=== PATIENT | male | born 1945 | race Caucasian/White ===

== ENCOUNTER 2019-05-30 15:31 | Inpatient (IN) | payer MEDICARE ==
[~2019-05-30] VITALS: Ht 170.2 cm; Wt 107.0 kg
[2019-05-30] MEDS ORDERED: METF-954 PO (15:59)
[2019-05-30] MEDS ORDERED: ACTO30TA15 PO (15:59)
[2019-05-30] MEDS ORDERED: ZYLO300T6 PO (15:59)
[2019-05-30] MEDS ORDERED: LOSA100T50 PO (15:59)
[2019-05-30] MEDS ORDERED: SODI325T9 PO (15:59)
[2019-05-30] MEDS ORDERED: ONGL1TAB9 PO (15:59)
[2019-05-30 16:39] LABS: BASO # 0.1 10^3/uL (0.0-0.2); BASO % 0.7 % (0.0-1.0); EOS # 0.1 10^3/uL (0.0-0.50); EOS % 1.1 % (0.0-3.0); HEMATOCRIT 45.9 % (42.0-52.0); HEMOGLOBIN 15.7 g/dl (13.5-17.5); LYMPH % 12.2 % (24.0-44.0); MEAN CORPUSCULAR HEMOGLOBIN 34.7 pg (27.0-33.0); MEAN CORPUSCULAR HGB CONC 34.2 g/dl (32.0-36.5); MEAN CORPUSCULAR VOLUME 101.5 fl (80.0-96.0); MONO # 0.7 10^3/uL (0.0-0.8); NEUTROPHILS # 6.4 10^3/uL (1.8-7.7); NEUTROPHILS % 77.6 % (36.0-66.0); RED BLOOD COUNT 4.52 10^6/uL (4.30-6.10); WHITE BLOOD COUNT 8.3 10^3/uL (4.0-10.0)
[2019-05-30 16:47] LABS: BLOOD UREA NITROGEN 25 MG/DL (7-18); CALCIUM LEVEL 9.2 MG/DL (8.8-10.2); CARBON DIOXIDE LEVEL 27 MEQ/L (21-32); CHLORIDE LEVEL 104 MEQ/L (98-107); CK-MB VALUE MASS 1.6 NG/ML (<3.6); CPK CREATINE PHOSPHOKINASE 281 U/L (39-308); CREATININE FOR GFR 1.49 MG/DL (0.70-1.30); GLOMERULAR FILTRATION RATE 49.1 (>42); GLUCOSE, FASTING 157 MG/DL (70-100); MB/CK RELATIVE INDEX 0.57 (< OR =4); POTASSIUM SERUM 4.3 MEQ/L (3.5-5.1); SODIUM LEVEL 140 MEQ/L (136-145); TROPONIN I < 0.02 NG/ML (< 0.10)
[2019-05-30 16:48] LABS: INR 1.01
[2019-05-30 16:49] LABS: PARTIAL THROMBOPLASTIN TIME 32.7 SECONDS (25.0-38.4)
--- NOTE | 2019-05-30 16:58 | REP ---
CT head without contrast: Indication: Slurred speech, memory loss. Comparison: None. Findings: There is wedge-shaped hypodensity involving the left posterior frontal and temporal cortex with effacement of the overlying sulci consistent with left MCA territory infarction. Note is made intracranial vascular calcifications. There is no midline shift. There is no effacement of the basal cisterns. There is no acute intracranial hemorrhage. The orbits are intact. The visualized paranasal sinuses and mastoid air cells are clear. Impression: Findings consistent with left posterior, frontal and temporal infarct. No acute intracranial hemorrhage. Intracranial vascular calcifications noted. Findings reported to Dr. Staton in the ED at 04:13 p.m. on 05/30/2019. Electronically Signed by Mitchell Avitia MD 05/30/2019 07:00 P
[2019-05-30 17:07] LABS: PLATELET COUNT, AUTOMATED 93 10^3/uL (150-450)
--- NOTE | 2019-05-30 17:08 | REP ---
HISTORY: Stroke-like symptoms. The technique utilized in obtaining the radiograph has magnified the cardiac silhouette and accentuated the interstitial markings. The cardiac silhouette is accentuated by technique. Mild cardiomegaly cannot be ruled out. The lung valentine are clear and the pleural angles are sharp. The osseous structures are within normal limits for the patient's age. IMPRESSION: Potential cardiomegaly, but no evidence of acute cardiopulmonary disease. Electronically Signed by Feliep Perdomo DO 05/30/2019 06:01 P
[2019-05-30] MEDS ORDERED: PIOG1TAB36 PO (17:14)
[2019-05-30] MEDS ORDERED: ASPIRIN 81 MG CHEW TABLET PO ONE (18:15)
--- NOTE | 2019-05-30 18:25 | HPEPDOC ---
General Date of Admission May 30, 2019 at 17:50 Date of Service: May 30, 2019 Attending Physician: ANNELISE KNOWLES DO Chief Complaint The patient is a 73-year-old male admitted with a reason for visit of Cva (Cerebral Casular Accident). Source: Patient, Family History of Present Illness Patient is 73 years old male with past medical history diabetes type 2, hypertension, hyperlipidemia presented to Hospital with short-term memory problem and agnosia. His stated that in the morning around 8 am patient became confused, he couldn't recognize and name objects when he saw them. He never had this problem before. He did not have any focal neurologic deficiency, his blood glucose level was within normal limit. He doesn't have any seizures. His didn't notice any changes in his gait. There was some speech disturbances according to his . She asked him to come to the hospital in the morning but he refused. His memory problem did not resolve and his insisted him come to the hospital. In emergency room patient CT findings showed left posterior, frontal, temporal infarct. Patient denied any weakness, fever, chills, nausea, vomiting, sensitivity impairment, diarrhea. Home Medications Scheduled Allopurinol (Zyloprim) 300 Mg Tablet, 300 MG PO DAILY, (Reported) Losartan Potassium (Losartan Potassium) 100 Mg Tablet, 100 MG PO QHS, (Reported) Metformin HCl (Metformin HCl) 850 Mg Tablet, 850 MG PO BID, (Reported) Pioglitazone HCl (Pioglitazone HCl) 15 Mg Tablet, 15 MG PO DAILY, (Reported) Saxagliptin HCl (Onglyza) 5 Mg Tablet, 5 MG PO QHS, (Reported) Sodium Bicarbonate (Sodium Bicarbonate) 325 Mg Tablet, 650 MG PO TID, (Reported) Allergies Coded Allergies: Iodinated Contrast Media (Verified Allergy, Unknown, 05/30/19) hives Past Medical History Medical History Hypertension, Diabetes mellitus not on insulin Hyperlipidemia Family History His brother had a stroke when he was 60 Social History * Smoker: Denies Alcohol: Denies Drugs: denies Psychosocial History: No pertinent psych hx A-FIB/CHADSVASC A-FIB History Current/History of A-Fib/PAF?: No Current PO Anticoag Therapy: No Review of Systems Constitutional: Denies: Fever, Night Sweats Eyes: Denies: Vision change ENT: Denies: Sinus Congestion Skin: Denies: Jaundice Pulmonary: Denies: Pleuritic Chest Pain Cardiovascular: Denies: Chest Pain Gastrointestinal: Denies: Nausea, Vomiting Genitourinary: Denies: Frequency Hematologic: Denies: Bleeding Excessively Endocrine: Denies: Polydipsia, Polyphagia Musculoskeletal: Denies: Back Pain Neurological: Reports: Change in speech Psych: Denies: Mood Normal Physical Examination General Exam: Positive: Alert, Cooperative, No Acute Distress Eye Exam: Positive: PERRLA, EOMI ENT Exam: Positive: Atraumatic Neck Exam: Positive: Supple, +2 carotid pulse wo bruit; Negative: JVD Chest Exam: Positive: Clear to auscultation, Normal air movement Heart Exam: Positive: Rate Normal, Regular Rhythm Abdomen Exam: Positive: Normal bowel sounds Extremity Exam: Negative: Clubbing, Cyanosis, Edema Neuro Exam: Positive: Strength at 5/5 X4 ext, Sensation Intact, Cranial Nerves 3-12 NL Psych Exam: Negative: Mental status NL (short-term memory problem cannot name objects that I showed him. ) Vital Signs Vital Signs Date Time Temp Pulse Resp B/P (MAP) Pulse Ox O2 Delivery O2 Flow Rate FiO2 05/30/19 18:00 75 142/73 (96) 96 05/30/19 15:32 98.1 16 Room Air Laboratory Data Labs 24H Laboratory Tests 2 05/30/19 16:14: Immature Granulocyte % (Auto) 0.4, White Blood Count 8.3, Red Blood Count 4.52, Hemoglobin 15.7, Hematocrit 45.9, Mean Corpuscular Volume 101.5H, Mean Corpuscular Hemoglobin 34.7H, Mean Corpuscular Hemoglobin Concent 34.2, Red Cell Distribution Width 14.2, Platelet Count 93L, Neutrophils (%) (Auto) 77.6H, Lymphocytes (%) (Auto) 12.2L, Monocytes (%) (Auto) 8.0H, Eosinophils (%) (Auto) 1.1, Basophils (%) (Auto) 0.7, Neutrophils # (Auto) 6.4, Lymphocytes # (Auto) 1.0L, Monocytes # (Auto) 0.7, Eosinophils # (Auto) 0.1, Basophils # (Auto) 0.1, Nucleated Red Blood Cells % (auto) 0.0, Immature Platelet Fraction 4.9, Prothrombin Time 13.0, Prothromb Time International Ratio 1.01, Activated Partial Thromboplast Time 32.7, Anion Gap 9, Glomerular Filtration Rate 49.1, Blood Urea Nitrogen 25H, Creatinine 1.49H, Sodium Level 140, Potassium Level 4.3, Chloride Level 104, Carbon Dioxide Level 27, Calcium Level 9.2, Total Creatine Kinase 281, Creatine Kinase MB 1.6, Creatine Kinase MB Relative Index 0.57, Troponin I < 0.02 CBC/BMP Laboratory Tests 05/30/19 16:14 Red Blood Count 4.52, Mean Corpuscular Volume 101.5 H, Mean Corpuscular Hemoglobin 34.7 H, Mean Corpuscular Hemoglobin Concent 34.2, Red Cell Distribution Width 14.2, Neutrophils (%) (Auto) 77.6 H, Lymphocytes (%) (Auto) 12.2 L, Monocytes (%) (Auto) 8.0 H, Eosinophils (%) (Auto) 1.1, Basophils (%) (Auto) 0.7, Neutrophils # (Auto) 6.4, Lymphocytes # (Auto) 1.0 L, Monocytes # (Auto) 0.7, Eosinophils # (Auto) 0.1, Basophils # (Auto) 0.1, Calcium Level 9.2, Total Creatine Kinase 281 Assessment/Plan Patient is 73 years old male with past history hypertension, type 2 diabetes presenting to the hospital with short-term memory problem, has inability to recognize and name the objects. In Emergency aging department supervisor CT showed left MCA territory infarction. Patient loaded with full dose of aspirin, statin started #Ischemic stroke CT head findings consistent with left posterior, frontal and temporal infarct, no acute intracranial hemorrhage Patient was out for 3 h window for tpa Echo MRI, MRA brain and neck Full dose of aspirin, statin Appreciated/agree with neurologist consult PT/OT Nothing by mouth for now until speech eval Diabetes type 2 Hold his diabetes PO meds Insulin sliding scale Hypertension Continue his home meds Problems (1) Diabetes type 2, controlled (2) CVA (cerebral vascular accident) Status: Acute (3) Hypertension Plan / VTE VTE Prophylaxis Ordered?: Yes Plan Diet: ANNELISE Agustin DO May 30, 2019 18:25
[2019-05-30 19:56] VITALS: BP 174/78
[2019-05-30] MEDS: HEPARIN SOD (PORCINE) 5000 UNITS/ML VIAL SC SCH (20:11)
[2019-05-30] MEDS: ATORVASTATIN 20 MG TAB PO SCH (20:11)
[2019-05-30] MEDS: LOSARTAN 50 MG TAB PO SCH (20:12)
[2019-05-30] MEDS: HumaLOG INSULIN (NovoLOG) PER UNIT SC SCH ×2 (20:13→23:56)
--- NOTE | 2019-05-30 23:17 | REPVR ---
EXAM: MR Angiography Neck Without Contrast EXAM DATE/TIME: 05/30/2019 9:37 PM CLINICAL HISTORY: 73 years old, male; Communication deficit; Patient HX: PT states cognitive deficit and facial dropping that has since subsided, ; Additional Info: neuro symptoms TECHNIQUE: Imaging protocol: Magnetic resonance angiography images of the neck without intravenous contrast. 3D rendering: MIP reconstructed images were created and reviewed. COMPARISON: No relevant prior studies available. FINDINGS: Limitations: Examination is limited by motion artifact. Right common carotid artery: No definite stenosis or occlusion. Right internal carotid artery: No definite stenosis or occlusion. Right external carotid artery: No definite stenosis or occlusion. Right vertebral artery: Origin of the right vertebral artery is not well-seen. No gross occlusion otherwise. Left common carotid artery: No definite stenosis or occlusion. Left internal carotid artery: No definite stenosis or occlusion. Left external carotid artery: No definite stenosis or occlusion. Left vertebral artery: Origin of the left vertebral artery is not well-seen. No gross occlusion otherwise. IMPRESSION: 1. Limited evaluation. 2. No definite stenosis or occlusion of the carotid arteries. 3. Origin of the vertebral arteries are not well-seen. COMMENT: Reference per NASCET criteria for degree of stenosis: Mild: less than 50% stenosis. Moderate: 50-69% stenosis. Severe: 70-94% stenosis. Near occlusion: 95-99% stenosis. Electronically signed by: Abbey Mayes On 05/30/2019 23:17:27 PM
--- NOTE | 2019-05-30 23:22 | REPVR ---
EXAM: MR Angiogram Head Without Contrast, Arteries EXAM DATE/TIME: 05/30/2019 9:17 PM CLINICAL HISTORY: 73 years old, male; Altered mental status; Patient HX: PT states cognitive deficit and facial dropping that has since subsided, ; Additional Info: with neck. Acute cerebral infarct. TECHNIQUE: Imaging protocol: MR angiogram head without contrast. Exam focused on the arteries. 3D rendering: MIP reconstructed images were created and reviewed. COMPARISON: CT Head without contrast 05/30/2019 3:53 PM FINDINGS: Right internal carotid artery: Unremarkable. Intracranial segment is patent with no significant stenosis. No aneurysm. Right anterior cerebral artery: Unremarkable. No occlusion or significant stenosis. No aneurysm. Right middle cerebral artery: Unremarkable. No occlusion or significant stenosis. No aneurysm. Right posterior cerebral artery: Unremarkable. No occlusion or significant stenosis. No aneurysm. Right vertebral artery: Unremarkable. No occlusion or significant stenosis. No aneurysm. Left internal carotid artery: Unremarkable. Intracranial segment is patent with no significant stenosis. No aneurysm. Left anterior cerebral artery: Unremarkable. No occlusion or significant stenosis. No aneurysm. Left middle cerebral artery: Unremarkable. No occlusion or significant stenosis. No aneurysm. Left posterior cerebral artery: Unremarkable. No occlusion or significant stenosis. No aneurysm. Left vertebral artery: Unremarkable. No occlusion or significant stenosis. No aneurysm. Basilar artery: Unremarkable. No occlusion or significant stenosis. No aneurysm. IMPRESSION: No large vessel arterial occlusion. Electronically signed by: Abbey Mayes On 05/30/2019 23:21:58 PM
--- NOTE | 2019-05-30 23:24 | REPVR ---
EXAM: MR Head Without Contrast EXAM DATE/TIME: 05/30/2019 9:17 PM CLINICAL HISTORY: 73 years old, male; Alteration of consciousness; Transient alteration of awareness; Patient HX: PT states cognitive deficit and facial dropping that has since subsided, ; Additional Info: with neck. Acute cerebral infarct. TECHNIQUE: Imaging protocol: MR of the head without contrast. COMPARISON: CT Head without contrast 05/30/2019 3:53 PM FINDINGS: Limitations: Examination is limited by motion artifact. Brain: Acute infarct in the posterior left temporal lobe. Small acute infarcts in the left parietal lobe. Mild T2-hyperintense changes in the deep white matter which are nonspecific but suspicious for chronic small vessel ischemic disease. No acute hemorrhage. No midline shift. Ventricles: Normal. No ventriculomegaly. Bones/joints: Unremarkable. Soft tissues: Normal. Sinuses: Normal as visualized. No acute sinusitis. Mastoid air cells: Normal as visualized. No mastoid effusion. Orbits: Unremarkable. IMPRESSION: 1. Acute infarct in the posterior left temporal lobe. Please correlate with CT findings. 2. Small acute infarcts in the left parietal lobe. 3. Mild T2-hyperintense changes in the deep white matter which are nonspecific but suspicious for chronic small vessel ischemic disease. Electronically signed by: Abbey Mayes On 05/30/2019 23:24:18 PM
--- NOTE | 2019-05-30 23:27 | REPVR ---
EXAM: US Duplex Bilateral Extracranial Arteries EXAM DATE/TIME: 05/30/2019 6:50 PM CLINICAL HISTORY: 73 years old, male; Condition or Disease; Other: stroke/cva TECHNIQUE: Imaging protocol: Real-time Duplex ultrasound scan of the Bilateral carotid and vertebral arteries combining soriano scale, color Doppler and spectral waveform analysis. COMPARISON: CT Head without contrast 05/30/2019 3:53 PM FINDINGS: Right common carotid artery: Unremarkable. No occlusion or stenosis. Waveforms are normal. Peak systolic velocity is 93 cm/s. Right internal carotid artery: No occlusion or stenosis. Waveforms are normal. Peak systolic velocity is 78 cm/s. Mild echogenic intimal thickening. Right ICA/CCA ratio: Within normal limits. 0.84. Right external carotid artery: No stenosis in the origin. Right vertebral artery: Unremarkable. Antegrade flow Left common carotid artery: Unremarkable. No occlusion or stenosis. Waveforms are normal. Peak systolic velocity is 105 cm/s. Left internal carotid artery: No occlusion or stenosis. Waveforms are normal. Peak systolic velocity is 64 cm/s. Mild echogenic intimal thickening. Left ICA/CCA ratio: Within normal limits. 0.61. Left external carotid artery: No stenosis in the origin. Left vertebral artery: Unremarkable. Antegrade flow. IMPRESSION: No carotid arterial stenosis. COMMENT: Carotid Stenosis Reference using SRU criteria: Mild: less than 50% stenosis. ICA PSV is less than 125 cm/second and plaque or intimal thickening is visible. Moderate: 50-69% stenosis. ICA PSV is 125 to 230 cm/second and plaque is visible. Severe: 70-94% stenosis. ICA PSV is more than 230 cm/second and visible plaque and lumen narrowing are seen. Near occlusion: 95-99% stenosis. ICA PSV is variable and significant plaque and luminal narrowing are seen. Occluded: 100% stenosis. No flow identified. Electronically signed by: Abbey Mayes On 05/30/2019 23:27:10 PM
[2019-05-30 23:50] VITALS: BP 148/80
[2019-05-31] VITALS (7 sets, daily range): BP systolic 140–180; BP diastolic 69–73
[2019-05-31 05:57] LABS: HEMATOCRIT 43.8 % (42.0-52.0); HEMOGLOBIN 14.9 g/dl (13.5-17.5); MEAN CORPUSCULAR HEMOGLOBIN 34.2 pg (27.0-33.0); MEAN CORPUSCULAR VOLUME 100.5 fl (80.0-96.0); RED BLOOD COUNT 4.36 10^6/uL (4.30-6.10); WHITE BLOOD COUNT 4.3 10^3/uL (4.0-10.0)
[2019-05-31] MEDS: HumaLOG INSULIN (NovoLOG) PER UNIT SC SCH ×3 (06:00→17:58)
[2019-05-31 06:07] LABS: INR 1.04; PROTHROMBIN TIME 13.3 SECONDS (11.8-14.0)
[2019-05-31 06:11] LABS: PLATELET COUNT, AUTOMATED 73 10^3/uL (150-450)
--- NOTE | 2019-05-31 06:12 | ECGEPIP ---
[facility] - ED Test Date: 2019-05-30 Pat Name: CAROL ANN LOCKE Department: Room: - Gender: Male Lead [employer]er: JOEL : 1945 Requested By: Lyndsay Awan Order Number: [id number] Reading MD: Kunal Berry Measurements Intervals [place] Rate: 73 P: 49 MT: 212 QRS: -20 QRSD: 107 T: 32 QT: 374 QTc: 414 Interpretive Statements SINUS RHYTHM WITH FIRST DEGREE AV BLOCK MODERATE VOLTAGE CRITERIA FOR LVH, CONSIDER NORMAL VARIANT INCOMPLETE RIGHT BUNDLE BRANCH BLOCK NO PRIORS FOR COMPARISON Electronically Signed on 05-31-2019 6:12:18 EDT by Kunal Berry
[2019-05-31 06:16] LABS: BLOOD UREA NITROGEN 18 MG/DL (7-18); CALCIUM LEVEL 8.6 MG/DL (8.8-10.2); CARBON DIOXIDE LEVEL 26 MEQ/L (21-32); CHLORIDE LEVEL 106 MEQ/L (98-107); CREATININE FOR GFR 1.25 MG/DL (0.70-1.30); GLOMERULAR FILTRATION RATE > 60.0 (>42); GLUCOSE, FASTING 166 MG/DL (70-100); MAGNESIUM LEVEL 1.7 MG/DL (1.8-2.4); POTASSIUM SERUM 4.2 MEQ/L (3.5-5.1); SODIUM LEVEL 138 MEQ/L (136-145)
[2019-05-31] MEDS ORDERED: NS 1,000 ML IV SCH ×2 (07:30)
[2019-05-31] MEDS: HEPARIN SOD (PORCINE) 5000 UNITS/ML VIAL SC SCH ×2 (08:30→20:58)
[2019-05-31] MEDS: ASPIRIN 81 MG CHEW TABLET PO SCH (08:30)
[2019-05-31] MEDS: ALLOPURINOL 300 MG TAB PO SCH (08:30)
[2019-05-31] MEDS ORDERED: GLUCAGON FOR INJ 1 MG VIAL (J1610) SC PRN (10:30)
[2019-05-31] MEDS ORDERED: GLUCOSE 4 GM CHEW TABLET PO PRN (10:30)
[2019-05-31] MEDS ORDERED: SLF 3 ML SYR IV PRN (11:15)
[2019-05-31] MEDS: SLF 3 ML SYR IV SCH ×2 (14:00→21:00)
--- NOTE | 2019-05-31 17:06 | IPNPDOC ---
Text Note Date of Service The patient was seen on 05/31/19. NOTE Subjective: Patient doesn't have any complaints. No any acute events overnight. Patient still have mild cognitive impairment, difficulties with words finding. Patient denies headache, diplopia, shortness of breath, palpitations, diarrhea or dysuria Objective: Gen NAD HEENT PERRLA, EOMI, no JVD CV S1-S2 regular Abdomen nontender, nondistended, no rebound Extremities no edema, no cyanosis Neuro: Follows commands, AAO3, no rigidity, no focal deficiency, cranial nerves from 2-12 intact Patient is 73 years old male with past history hypertension, type 2 diabetes presenting to the hospital with short-term memory problem, has inability to recognize and name the objects. In Emergency title department manager CT showed left MCA territory infarction. Patient loaded with full dose of aspirin, statin started. #Ischemic stroke CT head findings consistent with left posterior, frontal and temporal infarct, no acute intracranial hemorrhage. Brain MRI showed acute infarct in the left temporal lobe, small acute infarct in the left parietal lobe. MRA negative Patient was out for 3 h window for tpa Echo pending Continue the full dose of aspirin, statin Appreciated/agree with neurologist consult PT/OT Speech specialist recommended regular diet lipid panel Diabetes type 2 Hold his diabetes PO meds Insulin sliding scale Hypertension Continue his home meds VS,Fishbone, I+O VS, Fishbone, I+O Laboratory Tests 05/31/19 05:26 Red Blood Count 4.36, Mean Corpuscular Volume 100.5 H, Mean Corpuscular Hemoglobin 34.2 H, Mean Corpuscular Hemoglobin Concent 34.0, Red Cell Distribution Width 13.9, Calcium Level 8.6 L Vital Signs Date Time Temp Pulse Resp B/P (MAP) Pulse Ox O2 Delivery O2 Flow Rate FiO2 05/31/19 12:00 96.8 69 17 141/69 (93) 98 05/30/19 19:20 Room Air I&O- Last 24 Hours up to 6 AM 05/31/19 06:00 Intake Total 0 ml Output Total 1075 ml Balance -1075 ml ANNELISE KNOWLES DO May 31, 2019 17:06
[2019-05-31] MEDS: ATORVASTATIN 20 MG TAB PO SCH (20:58)
[2019-05-31] MEDS: LOSARTAN 50 MG TAB PO SCH (20:58)
[2019-05-31] MEDS ORDERED: HumaLOG INSULIN (NovoLOG) PER UNIT SC SCH (21:00)
[2019-06-01 04:39] VITALS: BP 132/79
[2019-06-01] MEDS: SLF 3 ML SYR IV SCH ×2 (05:34→14:04)
[2019-06-01 06:10] LABS: INR 1.05; PROTHROMBIN TIME 13.4 SECONDS (11.8-14.0)
[2019-06-01 06:28] LABS: CHOLESTEROL LEVEL 99 MG/DL (<200); CHOLESTEROL RISK RATIO 2.475 (<5); HDL CHOLESTEROL 40 MG/DL (>40); LDL CHOLESTEROL 27 MG/DL (<100); NON-HDL-C 59 MG/DL; TRIGLYCERIDES LEVEL 158 MG/DL (<150)
[2019-06-01] MEDS: HumaLOG INSULIN (NovoLOG) PER UNIT SC SCH ×2 (07:30→13:30)
[2019-06-01 08:00] VITALS: BP 142/74
--- NOTE | 2019-06-01 08:25 | CR ---
DATE OF CONSULTATION: 06/01/2019 REFERRING PHYSICIAN: Dr. Joss Graves REASON FOR CONSULTATION: Slurred speech. HISTORY OF PRESENT ILLNESS: Rome Muñiz is a 73-year-old man who lives in [place] and he was at his vacation home and camping in this region. He woke up morning and his felt he was acting funny and boggy. At times, he appeared to have trouble with his speech and staring. He seemed off. He did not have any numbness or weakness of arms and legs, difficulty walking, balance, headaches, neck or back pain. His felt that his speech got even worse in the afternoon. They did not seek medical attention until 6:00 in the evening. When his asked him what year it was he said 1998 or 1898. At that time, she decided to bring him to [facility]. CT scan of the head showed hypodensity in left temporal and parietal head region. He was admitted for stroke workup. He was out of the window for any intervention at that time. The patient was taking ibuprofen and naproxen for his arthritis. He had stopped taking aspirin a few years ago. PAST MEDICAL HISTORY: Diabetes, hypertension, dyslipidemia. FAMILY HISTORY: Brother had a stroke when he was [id number]. SOCIAL HISTORY: Denies smoking, alcohol or illicit drugs. CURRENT MEDICATIONS: Allopurinol 300 mg by mouth daily, losartan 1 mg by mouth daily, metformin 850 mg by mouth twice a day, pioglitazone 15 mg by mouth daily, Saxagliptin 5 mg by mouth daily, sodium bicarbonate 650 mg by mouth three times a day. ALLERGIES: IODINE CONTRAST DYE. REVIEW OF SYSTEMS: All systems were reviewed and found to be noncontributory except as mentioned in history of present illness. PHYSICAL EXAMINATION: Temperature 96.8, pulse 69, respiratory rate 17, blood pressure 141/69, and 98% saturation on room air. Heart: Regular rate and rhythm. Lungs: Clear to auscultation. Abdomen: Soft, nontender, nondistended. No pedal edema. No musculoskeletal abnormalities. No rash. No signs of meningeal irritation. No dysmetria or ataxia. The patient is awake, alert, oriented to self, city, state. He had difficulty with naming. He had difficulty naming and spelling the president's name. He does not know the name of the hospital. He is not from this town. He has difficulty reading, but has no difficulty writing. He makes paraphasic errors while talking. He has difficulty with calculations. He does not have difficulty with right and left parts of his body. He cannot name the fingers of his hand. He had difficulty with names of months of a year. Extraocular muscles are intact. No facial weakness. Tongue and uvula are midline. No nystagmus. Visual valentine are full to confrontation. Distant memory is intact. Recent memory is intact. 5/5 strength in all four extremities. Deep tendon flexes 2+ throughout. Gait is normal. DIAGNOSTIC STUDIES: CT scan of head and MRI scan of brain showed left posterior temporal and parietal acute ischemic stroke. MRA of brain and neck were reportedly unremarkable. His 12-lead EKG and telemetry showed sinus rhythm with nonspecific intraventricular conduction delay. His echocardiogram is pending. ASSESSMENT: 1. Acute ischemic left posterior temporal and parietal stroke. 2. 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 3. Rule out cardiac source and paroxysmal atrial fibrillation. 4. Diabetes and hypertension. PLAN: 1. Echocardiogram. 2. Check fasting lipid profile. 3. Lipitor 40 mg by mouth daily and aspirin 325 mg by mouth daily. He should discontinue ibuprofen and naproxen. 4. Consider [place] [facility] Heart monitor or loop recorder when the patient goes back to [place]. They plan to leave and head back to [place] as soon as he gets discharged. He should see a neurologist and tree faller when they go back. 5. Keep systolic blood pressure below 180 and diastolic blood pressure below 100 in acute and subacute phase with long-term goal of systolic blood pressure below 130 and diastolic blood pressure below 80. 6. Continue appropriate management of his diabetes.
[2019-06-01 08:27] LABS: HEMATOCRIT 43.9 % (42.0-52.0); HEMOGLOBIN 15.1 g/dl (13.5-17.5); MEAN CORPUSCULAR HEMOGLOBIN 33.9 pg (27.0-33.0); MEAN CORPUSCULAR HGB CONC 34.4 g/dl (32.0-36.5); MEAN CORPUSCULAR VOLUME 98.4 fl (80.0-96.0); RED BLOOD COUNT 4.46 10^6/uL (4.30-6.10); WHITE BLOOD COUNT 4.9 10^3/uL (4.0-10.0)
[2019-06-01 08:30] LABS: PLATELET COUNT, AUTOMATED 84 10^3/uL (150-450)
[2019-06-01 08:32] LABS: BLOOD UREA NITROGEN 18 MG/DL (7-18); CALCIUM LEVEL 9.1 MG/DL (8.8-10.2); CARBON DIOXIDE LEVEL 23 MEQ/L (21-32); CHLORIDE LEVEL 107 MEQ/L (98-107); CREATININE FOR GFR 1.21 MG/DL (0.70-1.30); GLOMERULAR FILTRATION RATE > 60.0 (>42); GLUCOSE, FASTING 195 MG/DL (70-100); POTASSIUM SERUM 4.1 MEQ/L (3.5-5.1); SODIUM LEVEL 138 MEQ/L (136-145)
[2019-06-01] MEDS: ASPIRIN 81 MG CHEW TABLET PO SCH (08:40)
[2019-06-01] MEDS: ALLOPURINOL 300 MG TAB PO SCH (08:41)
[2019-06-01] MEDS: HEPARIN SOD (PORCINE) 5000 UNITS/ML VIAL SC SCH (08:41)
[2019-06-01] MEDS ORDERED: ACETAMINOPHEN TAB 650MG DOSE (2X325MG) PO PRN (09:00)
--- NOTE | 2019-06-01 10:48 | ECHO ---
DATE OF SERVICE: 05/31/2019 AGE: 73 ROOM NUMBER: [id number] REFERRING PROVIDER: Dr. Joss Graves REASON FOR STUDY: CVA. 2D MEASUREMENTS: IVS: 1.3 cm LV: 5.0 cm LVPW: 1.3 cm LA: 3.9 cm Aorta: 3.6 cm RV: 3.2 cm IVC: 1.1 cm DOPPLER MEASUREMENTS: Peak velocity across the aortic valve: 1.8 m/s Peak velocity across the LVOT: 1.2 m/s Peak gradient across the aortic valve 11 mmHg Mean gradient across the aortic valve 5 mmHg Mitral E: 0.49 Mitral A: 0.68 with a ratio of 0.7 Maximum tricuspid valve velocity: 2.4 m/s 2D COMMENTS: 1. Mildly increased left ventricular wall thickness with normal left ventricular size and a normal global left ventricular systolic function. The estimated left ventricular systolic ejection is 60-65%. 2. Normal left atrium. Normal right atrium and right ventricle. 3. The atrial septum appeared to be normal without evidence of defect or shunt. 4. Normal aortic root. 5. Trace to small pericardial effusion noted, no evidence of cardiac tamponade. 6. Mildly calcified aortic valve, leaflet excursion appeared to be minimally restricted. No mitral valve, and tricuspid valve. The pulmonic valve and proximal pulmonary artery branches were not well visualized. 7. The inferior vena cava was normal in size, central venous pressure most likely normal. DOPPLER: Only trace to mild tricuspid regurgitation detected. The calculated pulmonary artery systolic pressure varies between 30-40 mmHg. Abnormal relaxation pattern was noted across the mitral valve leaflets as well as the mitral valve annulus consistent with features of grade 1 left ventricular diastolic dysfunction. IMPRESSION: 1. Normal global left ventricular systolic function with mild concentric left ventricular hypertrophy. There are some features of grade 1 left ventricular diastolic dysfunction manifested by abnormal relaxation. 2. Aortic valve sclerosis with trivial aortic stenosis but no aortic regurgitation. 3. Trace to mild tricuspid regurgitation with probably mild pulmonary hypertension. 4. Trace to small pericardial effusion noted, no evidence of cardiac tamponade. MTDD
[2019-06-01 12:00] VITALS: BP 142/83
[2019-06-01] MEDS ORDERED: ASPI81CH8 PO (12:18)
[2019-06-01] MEDS ORDERED: ATOR1TAB21 PO (12:18)
[2019-06-01] MEDS ORDERED: ACET1TAB55 PO (12:18)
[2019-06-01] MEDS ORDERED: ASPI-1 PEG (12:31)
[2019-06-01] MEDS ORDERED: ATOR40TA75 PO (12:41)
--- NOTE | 2019-06-01 13:05 | DS.PDOC ---
Discharge Summary General Date of Admission May 30, 2019 at 17:50 Date of Discharge 06/01/19 Attending Physician: JOSS KNOWLES DO Discharge Summary PROCEDURES PERFORMED DURING STAY: None ADMITTING DIAGNOSES: Ischemic stroke Diabetes type 2 Hypertension DISCHARGE DIAGNOSES: Ischemic stroke (Acute ischemic left posterior temporal and parietal stroke) Diabetes type 2 Hypertension COMPLICATIONS/CHIEF COMPLAINT: Cva (Cerebral Vascular Accident). HISTORY OF PRESENT ILLNESS: Patient is 73 years old male with past medical hi story diabetes type 2, hypertension, hyperlipidemia presented to Hospital with short-term memory problem and agnosia. His stated that in the morning around 8 am patient became confused, he couldn't recognize and name objects when he saw them. He never had this problem before. He did not have any focal neurologic deficiency, his blood glucose level was within normal limit. He doesn't have any seizures. His didn't notice any changes in his gait. There was some speech disturbances according to his . She asked him to come to the hospital in the morning but he refused. His memory problem did not resolve and his insisted him come to the hospital. In emergency room patient CT fin dings showed left posterior, frontal, temporal infarct. Patient denied any weakness, fever, chills, nausea, vomiting, sensitivity impairment, diarrhea. HOSPITAL COURSE: During hospital course imaging study was done and showed acute ischemic left posterior temporal and parietal stroke. On the neurological evaluation patient was found to have difficulty with naming. He had difficulty naming and spelling the president's name. He does not know the name of the hospital. He is not from this town. He has difficulty reading, but has no difficulty writing. He makes paraphasic errors while talking. He has difficulty with calculations. He does not have difficulty with right and left parts of his body. He cannot name the fingers of his hand. He had difficulty with names of months of a year. Treatment with aspirin 325 mg and Lipitor 40 mg point initiated. Telemetry during hospital stay showed normal sinus. Patient was consulted by neurologist Dr. Rios who recommended [facility] monitor or loop recorder for 30 days in the outpatient settings. Patient will need follow-up with neurologist and medical secretary in the outpatient settings. DISCHARGE MEDICATIONS: Please see below. ALLERGIES: Please see below. PHYSICAL EXAMINATION ON DISCHARGE: VITAL SIGNS: Please see below. GENERAL: NAD HEENT: PERRLA, EOMI NECK: Supple CARDIOVASCULAR EXAMINATION: S1 and S2, regular RESPIRATORY EXAMINATION: CTA ABDOMINAL EXAMINATION: Nontender nondistended EXTREMITIES: No edema no cyanosis NEUROLOGICAL EXAMINATION: Cranial nerves 2 through 12 intact, no focal neurologi c deficit, follows command LABORATORY DATA: Please see below. IMAGING: EXAM: MR Angiography Neck Without Contrast EXAM DATE/TIME: 05/30/2019 9:37 PM CLINICAL HISTORY: 73 years old, male; Communication deficit; Patient HX: PT states cognitive deficit and facial dropping that has since subsided, ; Additional Info: neuro symptoms TECHNIQUE: Imaging protocol: Magnetic resonance angiography images of the neck without intravenous contrast. 3D rendering: MIP reconstructed images were created and reviewed. COMPARISON: No relevant prior studies available. FINDINGS: Limitations: Examination is limited by motion artifact. Right common carotid artery: No definite stenosis or occlusion. Right internal carotid artery: No definite stenosis or occlusion. Right external carotid artery: No definite stenosis or occlusion. Right vertebral artery: Origin of the right vertebral artery is not well-seen. No gross occlusion otherwise. Left common carotid artery: No definite stenosis or occlusion. Left internal carotid artery: No definite stenosis or occlusion. Left external carotid artery: No definite stenosis or occlusion. Left vertebral artery: Origin of the left vertebral artery is not well-seen. No gross occlusion otherwise. IMPRESSION: 1. Limited evaluation. 2. No definite stenosis or occlusion of the carotid arteries. 3. Origin of the vertebral arteries are not well-seen. COMMENT: Reference per NASCET criteria for degree of stenosis: Mild: less than 50% stenosis. Moderate: 50-69% stenosis. Severe: 70-94% stenosis. Near occlusion: 95-99% stenosis. Electronically signed by: Abbey Mayes On 05/30/2019 23:17:27 PM EXAM: MR Head Without Contrast EXAM DATE/TIME: 05/30/2019 9:17 PM CLINICAL HISTORY: 73 years old, male; Alteration of consciousness; Transient alteration of awareness; Patient HX: PT states cognitive deficit and facial dropping that has since subsided, ; Additional Info: with neck. Acute cerebral infarct. TECHNIQUE: Imaging protocol: MR of the head without contrast. COMPARISON: CT Head without contrast 05/30/2019 3:53 PM FINDINGS: Limitations: Examination is limited by motion artifact. Brain: Acute infarct in the posterior left temporal lobe. Small acute infarcts in the left parietal lobe. Mild T2-hyperintense changes in the deep white matter which are nonspecific but suspicious for chronic small vessel ischemic disease. No acute hemorrhage. No midline shift. Ventricles: Normal. No ventriculomegaly. Bones/joints: Unremarkable. Soft tissues: Normal. Sinuses: Normal as visualized. No acute sinusitis. Mastoid air cells: Normal as visualized. No mastoid effusion. Orbits: Unremarkable. IMPRESSION: 1. Acute infarct in the posterior left temporal lobe. Please correlate with CT findings. 2. Small acute infarcts in the left parietal lobe. 3. Mild T2-hyperintense changes in the deep white matter which are nonspecific but suspicious for chronic small vessel ischemic disease. CT head without contrast: Indication: Slurred speech, memory loss. Comparison: None. Findings: There is wedge-shaped hypodensity involving the left posterior fro ntal and temporal cortex with effacement of the overlying sulci consistent with left MCA territory infarction. Note is made intracranial vascular calcifications. There is no midline shift. There is no effacement of the basal cisterns. There is no acute intracranial hemorrhage. The orbits are intact. The visualized paranasal sinuses and mastoid air cells are clear. Impression: Findings consistent with left posterior, frontal and temporal infarct. No acute intracranial hemorrhage. Intracranial vascular calcifications noted. Findings reported to Dr. Staton in the ED at 04:13 p.m. on 05/30/2019. EXAM: US Duplex Bilateral Extracranial Arteries EXAM DATE/TIME: 05/30/2019 6:50 PM CLINICAL HISTORY: 73 years old, male; Condition or Disease; Other: stroke/cva TECHNIQUE: Imaging protocol: Real-time Duplex ultrasound scan of the Bilateral carotid and vertebral arteries combining soriano scale, color Doppler and spectral waveform analysis. COMPARISON: CT Head without contrast 05/30/2019 3:53 PM FINDINGS: Right common carotid artery: Unremarkable. No occlusion or stenosis. Waveforms are normal. Peak systolic velocity is 93 cm/s. Right internal carotid artery: No occlusion or stenosis. Waveforms are normal. Peak systolic velocity is 78 cm/s. Mild echogenic intimal thickening. Right ICA/CCA ratio: Within normal limits. 0.84. Right external carotid artery: No stenosis in the origin. Right vertebral artery: Unremarkable. Antegrade flow Left common carotid artery: Unremarkable. No occlusion or stenosis. Waveforms are normal. Peak systolic velocity is 105 cm/s. Left internal carotid artery: No occlusion or stenosis. Waveforms are normal. Peak systolic velocity is 64 cm/s. Mild echogenic intimal thickening. Left ICA/CCA ratio: Within normal limits. 0.61. Left external carotid artery: No stenosis in the origin. Left vertebral artery: Unremarkable. Antegrade flow. IMPRESSION: No carotid arterial stenosis. COMMENT: Carotid Stenosis Reference using SRU criteria: Mild: less than 50% stenosis. ICA PSV is less than 125 cm/second and plaque or intimal thickening is visible. Moderate: 50-69% stenosis. ICA PSV is 125 to 230 cm/second and plaque is visible. Severe: 70-94% stenosis. ICA PSV is more than 230 cm/second and visible plaque and lumen narrowing are seen. Near occlusion: 95-99% stenosis. ICA PSV is variable and significant plaque and luminal narrowing are seen. Occluded: 100% stenosis. No flow identified. EXAM: MR Angiogram Head Without Contrast, Arteries EXAM DATE/TIME: 05/30/2019 9:17 PM CLINICAL HISTORY: 73 years old, male; Altered mental status; Patient HX: PT states cognitive deficit and facial dropping that has since subsided, ; Additional Info: with neck. Acute cerebral infarct. TECHNIQUE: Imaging protocol: MR angiogram head without contrast. Exam focused on the arteries. 3D rendering: MIP reconstructed images were created and reviewed. COMPARISON: CT Head without contrast 05/30/2019 3:53 PM FINDINGS: Right internal carotid artery: Unremarkable. Intracranial segment is patent with no significant stenosis. No aneurysm. Right anterior cerebral artery: Unremarkable. No occlusion or significant stenosis. No aneurysm. Right middle cerebral artery: Unremarkable. No occlusion or significant stenosis. No aneurysm. Right posterior cerebral artery: Unremarkable. No occlusion or significant stenosis. No aneurysm. Right vertebral artery: Unremarkable. No occlusion or significant stenosis. No aneurysm. Left internal carotid artery: Unremarkable. Intracranial segment is patent with no significant stenosis. No aneurysm. Left anterior cerebral artery: Unremarkable. No occlusion or significant stenosis. No aneurysm. Left middle cerebral artery: Unremarkable. No occlusion or significant stenosis. No aneurysm. Left posterior cerebral artery: Unremarkable. No occlusion or significant stenosis. No aneurysm. Left vertebral artery: Unremarkable. No occlusion or significant stenosis. No aneurysm. Basilar artery: Unremarkable. No occlusion or significant stenosis. No aneurysm. IMPRESSION: No large vessel arterial occlusion. DATE OF SERVICE: 05/31/2019 AGE: 73 ROOM NUMBER: [id number] REFERRING PROVIDER: Dr. Joss Knowles REASON FOR STUDY: CVA. 2D MEASUREMENTS: IVS: 1.3 cm LV: 5.0 cm LVPW: 1.3 cm LA: 3.9 cm Aorta: 3.6 cm RV: 3.2 cm IVC: 1.1 cm DOPPLER MEASUREMENTS: Peak velocity across the aortic valve: 1.8 m/s Peak velocity across the LVOT: 1.2 m/s Peak gradient across the aortic valve 11 mmHg Mean gradient across the aortic valve 5 mmHg Mitral E: 0.49 Mitral A: 0.68 with a ratio of 0.7 Maximum tricuspid valve velocity: 2.4 m/s 2D COMMENTS: 1. Mildly increased left ventricular wall thickness with normal left ventricular size and a normal global left ventricular systolic function. The estimated left ventricular systolic ejection is 60-65%. 2. Normal left atrium. Normal right atrium and right ventricle. 3. The atrial septum appeared to be normal without evidence of defect or shunt. 4. Normal aortic root. 5. Trace to small pericardial effusion noted, no evidence of cardiac tamponade. 6. Mildly calcified aortic valve, leaflet excursion appeared to be minimally restricted. No mitral valve, and tricuspid valve. The pulmonic valve and proximal pulmonary artery branches were not well visualized. 7. The inferior vena cava was normal in size, central venous pressure most likely normal. Doppler, only trace to mild tricuspid regurgitation detected. The calculated pulmonary artery systolic pressure varies between 30-40 mmHg. Abnormal relaxation pattern was noted across the mitral valve leaflets as well as the mitral valve annulus consistent with features of grade 1 left ventricular diastolic dysfunction. IMPRESSION: 1. Normal global left ventricular systolic function with mild concentric left ventricular hypertrophy. There are some features of grade 1 left ventricular diastolic dysfunction manifested by abnormal relaxation. 2. Aortic valve sclerosis with trivial aortic stenosis but no aortic regurgitation. 3. Trace to mild tricuspid regurgitation with probably mild pulmonary hypertension. 4. Trace to small pericardial effusion noted, no evidence of cardiac tamponade. ACTIVITY: As tolerated DIET: diabetes DISCHARGE PLAN: home DISPOSITION: home DISCHARGE INSTRUCTIONS: 1. Follow-up with medical secretary, urologist, PCP ITEMS TO FOLLOWUP ON ON OUTPATIENT: 1. Patient will need to set up with cardiology office for Holter monitor DISCHARGE CONDITION: Stable. TIME SPENT ON DISCHARGE: Greater than 25 minutes. Vital Signs/I&Os Vital Signs Date Time Temp Pulse Resp B/P (MAP) Pulse Ox O2 Delivery O2 Flow Rate FiO2 06/01/19 12:00 96.6 61 16 142/83 (102) 95 05/30/19 19:20 Room Air I&O- Last 24 Hours up to 6 AM 06/01/19 06:00 Intake Total 1160 ml Output Total 600 ml Balance 560 ml Laboratory Data Labs 24H Laboratory Tests 2 05/31/19 17:11: Bedside Glucose (Misc Panel) 146H 05/31/19 20:54: Bedside Glucose (Misc Panel) 246H 06/01/19 05:33: Nucleated Red Blood Cells % (auto) 0.0, Immature Platelet Fraction 4.4 06/01/19 05:34: Prothrombin Time 13.4, Prothromb Time International Ratio 1.05, Anion Gap 8, Glomerular Filtration Rate > 60.0, Calcium Level 9.1, Triglycerides Level 158H, LDL Cholesterol 27, Total Cholesterol 99, Non-HDL Cholesterol (LDL + VLDL) 59, Total HDL Cholesterol 40, Cholesterol/HDL Ratio 2.475 06/01/19 08:06: Bedside Glucose (Misc Panel) 206H 06/01/19 11:50: Bedside Glucose (Misc Panel) 198H CBC/BMP Laboratory Tests 06/01/19 05:33 Red Blood Count 4.46, Mean Corpuscular Volume 98.4 H, Mean Corpuscular Hemoglobin 33.9 H, Mean Corpuscular Hemoglobin Concent 34.4, Red Cell Distribution Width 14.1 06/01/19 05:34 FSBS Laboratory Tests Test 05/31/19 17:11 05/31/19 20:54 06/01/19 08:06 06/01/19 11:50 Range/Units Bedside Glucose (Misc Panel) 146 246 206 198 83-110 MG/DL Discharge Medications Scheduled Allopurinol (Zyloprim) 300 Mg Tablet, 300 MG PO DAILY, (Reported) Aspirin (Aspirin) 325 Mg Tablet, 325 MG PEG DAILY Atorvastatin Calcium (Atorvastatin Calcium) 40 Mg Tablet, 1 TAB PO DAILY Losartan Potassium (Losartan Potassium) 100 Mg Tablet, 100 MG PO QHS, (Reported) Metformin HCl (Metformin HCl) 850 Mg Tablet, 850 MG PO BID, (Reported) Pioglitazone HCl (Pioglitazone HCl) 15 Mg Tablet, 15 MG PO DAILY, (Reported) Saxagliptin HCl (Onglyza) 5 Mg Tablet, 5 MG PO QHS, (Reported) Sodium Bicarbonate (Sodium Bicarbonate) 325 Mg Tablet, 650 MG PO TID, (Reported) Allergies Coded Allergies: Iodinated Contrast Media (Verified Allergy, Unknown, 05/30/19) JOSS Jordan DO Jun 01, 2019 13:05
[2019-06-01] MEDS ORDERED: ATORVASTATIN 20 MG TAB PO SCH (21:00)
[2019-06-02] MEDS ORDERED: ASPIRIN 325 MG TAB PEG SCH (09:00)
== END 2019-06-01 14:38 | disposition home or self-care (01) | DRG 66 ==
LOC: M ED 15:31 → M ED INP 17:50 → M PCU 19:42
PROVIDERS: ADMIT Internal Medicine; ATTEND Internal Medicine
DX: I63.532 Cerebral infarction due to unspecified occlusion or stenosis of left posterior cerebral artery (principal); I10 Essential (primary) hypertension; E11.9 Type 2 diabetes mellitus without complications; E78.5 Hyperlipidemia, unspecified; Z79.84 Long term (current) use of oral hypoglycemic drugs; Z79.899 Other long term (current) drug therapy; Z88.8 Allergy status to other drugs, medicaments and biological substances; Z91.041 Radiographic dye allergy status